=== PATIENT | male | born 1975 | race Caucasian/White ===

== ENCOUNTER → 2024-06-03 13:04 | Outpatient (REF) | payer OTHER, SELFPAY | LOC: HWRAD 13:04 | PROVIDERS: ATTENDING PHYSICIAN Urology; FAMILY PHYSICIAN Internal Medicine | DX: Z87.440 Personal history of urinary (tract) infections (principal); N31.2 Flaccid neuropathic bladder, not elsewhere classified | CPT/HCPCS: 76775 ==